=== PATIENT | female | born 1965 | race African-American/Black ===

== ENCOUNTER 2019-09-18 22:37 | Emergency (ER) | payer MEDICARE ==
[2019-09-18] MEDS ORDERED: Dexamethasone 4 mg/ml Vial ONE (23:18)
[2019-09-18] MEDS ORDERED: Famotidine 20 MG TAB ONE (23:18)
[2019-09-18] MEDS ORDERED: hydrOXYzine 25 MG TAB ONE (23:19)
== END 2019-09-19 00:14 | disposition home or self-care (01) ==
LOC: ERS 22:37
DX: S60.464A Insect bite (nonvenomous) of right ring finger, initial encounter (principal); S50.861A Insect bite (nonvenomous) of right forearm, initial encounter; S10.96XA Insect bite of unspecified part of neck, initial encounter; T78.49XA Other allergy, initial encounter; E11.9 Type 2 diabetes mellitus without complications; E78.2 Mixed hyperlipidemia; I10 Essential (primary) hypertension; F31.9 Bipolar disorder, unspecified; Z79.84 Long term (current) use of oral hypoglycemic drugs; Z79.899 Other long term (current) drug therapy; W57.XXXA Bitten or stung by nonvenomous insect and other nonvenomous arthropods, initial encounter
CPT/HCPCS: 99283; J1100